=== PATIENT | female | born 1960 | race Caucasian/White ===

== ENCOUNTER 2016-12-23 14:51 | Emergency (ER) | payer OTHER ==
[~2016-12-23] VITALS: Ht 170.2 cm; Wt 49.0 kg
[~2016-12-23 14:51] MED LIST: AMLO10 PO; CLON0.2T PO; LEVO-86 PO; LISI-515 PO; METO25TA3 PO; TRAM50TA PO
[2016-12-23 15:05] VITALS: BP 133/94; PULSE 90; RESP 17; TEMP 98.5; O2SAT 96
--- NOTE | 2016-12-23 15:40 | PD ---
HPI . possible broken left pinky Chief Complaint: Injury Time Seen by Provider: 15:40 Travel History International Travel<30 days: No Contact w/Intl Traveler<30days: No Traveled to known affect area: No History of Present Illness HPI 56-year-old female well known to me while working at [facility] who has hypertension and hypothyroidism here with complaints of a possible left broken pinky finger. Patient says she was doing something at [facility] and somewhat lost her balance and sort of fell and hurt her finger. She admits to pain in the left pinky. It is tender to touch and hurts with slight movement. She denies any other symptoms. She did not hit her head. No LOC or syncope. PFSH Past Medical History Hx Anticoagulant Therapy: No Arthritis: Yes Blood Disorders: No Heart Rhythm Problems: No Cancer: No Cardiac Catheterization: No Cardiovascular Problems: Yes (htn on meds) High Cholesterol: Yes Chemotherapy: No Chest Pain: Yes Congestive Heart Failure: No COPD: Yes Cerebrovascular Accident: Yes Diabetes: No Diminished Hearing: No Endocrine: Yes GERD: Yes Genitourinary: No Headaches: Yes Hepatitis: No Hiatal Hernia: No Heparin Induced Thrombocytopen: No Herniated Disk: Yes (x3 and ruptured disk) Hypertension: Yes Immune Disorder: No Implanted Vascular Access Dvce: No Musculoskeletal: Yes (FX LEFT CALCANEOUS; ARTHRITIS) Neurologic: Yes (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 STROKE 2010 ) Psychiatric: No Respiratory: Yes (copd) Immunizations Current: No Radiation Therapy: Yes Thyroid Disease: Yes (hypothyroid had radiation therapy) Tetanus Vaccination: < 5 Years ?: Not Menopausal: Yes : 2 Para: 2 Tubal Ligation: Yes Past Surgical History Abdominal Surgery: Yes (EXP LAP X 3; CHOLECY 1978; APPY ) AICD: No Appendectomy: Yes Body Medical Devices: HYPOTHYROID Cardiac Surgery: No Section: Yes Cholecystectomy: Yes Coronary Artery Bypass Graft: No Ear Surgery: No Endocrine Surgery: No Eye Surgery: No Genitourinary Surgery: No Gynecologic Surgery: Yes (, HYSTERECTOMY) Hysterectomy: Yes Joint Replacement: No Neurologic Surgery: No Oral Surgery: No Pacemaker: No Thoracic Surgery: No Other Surgery: Yes (exploratory) Family History Family Myocardial Infarction: Yes (MOTHER) Social History Alcohol Use: No Tobacco Use: Yes (1/2 ppd 40 years) Substance Use: No (denies; hx of PAIN PILLS 2009 ) Allergies-Medications (Allergen,Severity, Reaction): Coded Allergies: Morphine (Verified Adverse Reaction, Severe, "CRAMPS STOMACH REAL BAD", 12/23/16) PT STATES SHE CAN TAKE MORPHINE IF HAS FOOD IN STOMACH Reported Meds & Prescriptions Reported Meds & Active Scripts Active Reported Synthroid (Levothyroxine Sodium) 137 Mcg Tab 137 Mcg PO DAILY Norvasc (Amlodipine Besylate) 10 Mg Tab 10 Mg PO DAILY Metoprolol Tartrate 25 Mg Tab 25 Mg PO BID Lisinopril 20 Mg Tab 20 Mg PO BID Clonidine (Clonidine HCl) 0.2 Mg Tab 0.2 Mg PO TID Review of Systems General / Constitutional: No: Fever Eyes: No: Visual changes HENT: No: Headaches Cardiovascular: No: Chest Pain or Discomfort Respiratory: No: Shortness of Breath Gastrointestinal: No: Abdominal Pain Genitourinary: No: Dysuria Musculoskeletal: Positive: Pain (left pinky finger pain and mild swelling ) Skin: No Rash Neurologic: No: Weakness Psychiatric: No: Depression Endocrine: No: Polydipsia Hematologic/Lymphatic: No: Easy Bruising Physical Exam Narrative GENERAL: AAO x 3, no acute distress, Well-nourished, well-developed patient. SKIN: Warm and dry. No visible rashes or bruising. HEAD: Normocephalic and atraumatic. EYES: No scleral icterus. No injection or drainage. ENT: No nasal drainage noted. Mucous membranes pink. Airway patent. NECK: Supple, trachea midline. No JVD. CARDIOVASCULAR: Regular rate and rhythm without murmurs, gallops, or rubs. RESPIRATORY: Breath sounds diminished equally bilaterally. No accessory muscle use. No rhonchi or rales. GASTROINTESTINAL: Abdomen soft, non-tender, nondistended. EXTREMITIES: No cyanosis or edema. Left pinky finger tender to touch, mild edema no ecchymosis.Cap refill cannot be assessed due to acrylic nails. BACK: Nontender without obvious deformity. No CVA tenderness. PSYCH: AAO x 3, normal affect. Data Data Last Documented VS Vital Signs Date Time Temp Pulse Resp B/P Pulse Ox O2 Delivery O2 Flow Rate FiO2 12/23/16 15:05 98.5 90 17 133/94 96 Orders Hand, Complete ([id number]) (3/4/17 15:42) MDM Medical Decision Making Medical Screen Exam Complete: Yes Emergency Medical Condition: Yes Medical Record Reviewed: Yes Differential Diagnosis Left pinky finger fracture, left pinky finger contusion, left pinky finger dislocation Narrative Course 56-year-old female well known to me while working at [facility] who has hypertension and hypothyroidism here with complaints of a possible left broken pinky finger. Patient says she was doing something at [facility] and somewhat lost her balance and sort of fell and hurt her finger. She admits to pain in the left pinky. It is tender to touch and hurts with slight movement. She denies any other symptoms. She did not hit her head. No LOC or syncope. Patient seen and examined. Xray ordered and negative for fracture. Last 24 hours Impressions Hand X-Ray 12/23/16 [id number] Signed Impressions: Service Date/Time: Friday, December 23, 2016 15:48 - CONCLUSION: No acute findings. Cayetano Caballero MD Patient advised to take Ibuprofen and ICE area. She tells nurse she is allergic to ibuprofen and wants Lortab. I advised her that I will not be able to prescribe lortab. Diagnosis Primary Impression: Finger pain, left Patient Instructions: Finger Fracture (ED), General Instructions Additional Instructions: Please return to emergency department if your symptoms return or worsen. Follow up with your primary care provider. Take medications as prescribed. You can ice this area. Use Tylenol as needed for pain. Med/Other Pt SpecificInfo: No Change to Meds Disposition: 01 DISCHARGE HOME Condition: Stable Deedee Sr Dec 23, 2016 15:40
--- NOTE | 2016-12-23 16:11 | RADHPO ---
EXAM DATE/TIME: 12/23/2016 15:48 [facility] COMPARISON: HAND LEFT COMPLETE ([id number]), June 12, 2013, 12:27. INDICATIONS : Fell, has left hand pain MEDICAL HISTORY : None. SURGICAL HISTORY : None. ENCOUNTER: Initial ACUITY: 1 day PAIN SCORE: 8/10 LOCATION: Left hand FINDINGS: There is decreased bone density and mild osteoarthritis of the DIP joints. No fracture or dislocation is seen. CONCLUSION: No acute findings. Cayetano Caballero MD on December 23, 2016 at 16:09 Board Certified Radiologist. This report was verified electronically.
== END 2016-12-23 16:36 | disposition home or self-care (01) ==
LOC: PHEFT 14:51
DX: M79.645 Pain in left finger(s) (principal); I10 Essential (primary) hypertension; E78.00 Pure hypercholesterolemia, unspecified; J44.9 Chronic obstructive pulmonary disease, unspecified; E03.9 Hypothyroidism, unspecified; F17.210 Nicotine dependence, cigarettes, uncomplicated
CPT/HCPCS: 73130; 99283

== ENCOUNTER 2017-02-10 02:38 | Emergency (ER) | payer OTHER ==
[~2017-02-10] VITALS: Ht 170.2 cm; Wt 53.0 kg
[~2017-02-10 02:38] MED LIST changes: -TRAM50TA PO
[2017-02-10 02:46] VITALS: BP 185/106; PULSE 84; RESP 20; TEMP 98.2; O2SAT 99
[2017-02-10 03:01] VITALS: BP 185/106; PULSE 84; RESP 20; TEMP 98.2; O2SAT 99
[2017-02-10] MEDS ORDERED: oxyCODONE/ACETAMINOPHEN 5 MG/325 MG TAB PO ONE (03:30)
[2017-02-10] MEDS ORDERED: ONDANSETRON ODT 4 MG TAB PO ONE (03:30)
[2017-02-10 04:18] VITALS: BP 147/97; PULSE 69; RESP 20; O2SAT 98
[2017-02-10 04:32] LABS: BLOOD, URINE NEG (NEG); GLUCOSE,URINE NEG (NEG); KETONE, URINE NEG (NEG); NITRITE,URINE NEG (NEG)
[2017-02-10 04:38] LABS: URINE COLOR YELLOW (YELLW/STRAW)
[2017-02-10 04:40] LABS: BACTERIA, URINE RARE /hpf; COMMENT (UR) CULT NOT INDICATED; CULTURE IF INDICATED CULT NOT INDICATED; RBC, URINE 0-2 /hpf (0-3); SQUAMOUS EPITHELIAL CELL URINE > 8 /hpf (0-5); WBC, URINE 0-2 /hpf (0-5)
--- NOTE | 2017-02-10 05:04 | PD ---
HPI Chief Complaint: Musculoskeletal Complaint Time Seen by Provider: 03:25 Travel History International Travel<30 days: No Contact w/Intl Traveler<30days: No Traveled to known affect area: No History of Present Illness HPI 56-year-old female presents to the emergency department by private transportation for complaint of back pain with muscle spasm. Patient has history of back pain but typically not this severe. Patient states pain also sometimes refers down into her lower extremity. Patient denies any numbness tingling or weakness of the lower extremities. No bladder or bowel dysfunction. No saddle anesthesia. No recent fall or injury. Patient does admit to history of hypertension and tobacco use. Patient denies any chest pain shortness of breath abdominal pain referred neck jaw back shoulder arm pain. Patient notes that range of motion and ambulation increases pain remaining still provided some relief. PFSH Past Medical History Narrative Medical Arthritis COPD hypertension dyslipidemia hypothyroidism appendectomy cholecystectomy tobacco use nursing notes reviewed Hx Anticoagulant Therapy: No Arthritis: Yes Blood Disorders: No Heart Rhythm Problems: No Cancer: No Cardiac Catheterization: No Cardiovascular Problems: Yes (htn on meds) High Cholesterol: Yes Chemotherapy: No Chest Pain: Yes Congestive Heart Failure: No COPD: Yes Cerebrovascular Accident: Yes Diabetes: No Diminished Hearing: No Endocrine: Yes GERD: Yes Genitourinary: No Headaches: Yes Hepatitis: No Hiatal Hernia: No Heparin Induced Thrombocytopen: No Herniated Disk: Yes (x3 and ruptured disk) Hypertension: Yes Immune Disorder: No Implanted Vascular Access Dvce: No Medical other: No Musculoskeletal: Yes (FX LEFT CALCANEOUS; ARTHRITIS) Neurologic: Yes (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 STROKE 2010 ) Psychiatric: No Respiratory: Yes (copd) Immunizations Current: No Radiation Therapy: Yes Thyroid Disease: Yes (hypothyroid had radiation therapy) Tetanus Vaccination: > 5 Years Influenza Vaccination: Yes ?: Not Menopausal: Yes : 2 Para: 2 Tubal Ligation: Yes Past Surgical History Abdominal Surgery: Yes (EXP LAP X 3; CHOLECY 1978; APPY ) AICD: No Appendectomy: Yes Body Medical Devices: HYPOTHYROID Cardiac Surgery: No Section: Yes Cholecystectomy: Yes Coronary Artery Bypass Graft: No Ear Surgery: No Endocrine Surgery: No Eye Surgery: No Genitourinary Surgery: No Gynecologic Surgery: Yes (, HYSTERECTOMY) Hysterectomy: Yes Joint Replacement: No Neurologic Surgery: No Oral Surgery: No Pacemaker: No Thoracic Surgery: No Other Surgery: Yes (exploratory) Family History Family Myocardial Infarction: Yes (MOTHER) Social History Alcohol Use: No Tobacco Use: Yes (1/2 ppd 40 years) Substance Use: No (denies; hx of PAIN PILLS 2009 ) Allergies-Medications (Allergen,Severity, Reaction): Coded Allergies: Morphine (Verified Adverse Reaction, Severe, "CRAMPS STOMACH REAL BAD", ) PT STATES SHE CAN TAKE MORPHINE IF HAS FOOD IN STOMACH Reported Meds & Prescriptions Reported Meds & Active Scripts Active Robaxin (Methocarbamol) 750 Mg Tab 750 Mg PO Q6HR Zofran Odt (Ondansetron Odt) 4 Mg Tab 4 Mg SL Q6HR PRN Ultram (Tramadol HCl) 50 Mg Tab 50 Mg PO Q6H PRN Reported Synthroid (Levothyroxine Sodium) 137 Mcg Tab 137 Mcg PO DAILY Norvasc (Amlodipine Besylate) 10 Mg Tab 10 Mg PO DAILY Metoprolol Tartrate 25 Mg Tab 25 Mg PO BID Lisinopril 20 Mg Tab 20 Mg PO BID Clonidine (Clonidine HCl) 0.2 Mg Tab 0.2 Mg PO TID Review of Systems Except as stated in HPI: all other systems reviewed are Neg General / Constitutional: No: Fever, Chills Eyes: No: Visual changes HENT: No: Headaches, Neck Stiffness, Neck Pain Cardiovascular: No: Chest Pain or Discomfort Respiratory: No: Shortness of Breath Gastrointestinal: No: Nausea, Vomiting, Abdominal Pain Genitourinary: No: Flank Pain Musculoskeletal: Positive: Myalgias, Arthralgias, Pain Skin: No Rash (upper and lower back) Neurologic: No: Weakness, Dizziness, Syncope, Focal Abnormalities, Coordination Problem, Ataxia, Headache, Change in Mentation, Slurred Speech, Paresthesia, Incontinence, Seizures, Sensory Disturbance Psychiatric: Positive: Anxiety Hematologic/Lymphatic: No: Lymph Node Enlargement Physical Exam Narrative GENERAL: Well-developed well-nourished female in no acute distress no respiratory distress SKIN: Warm and dry. HEAD: Atraumatic. Normocephalic. EYES: Pupils equal and round. No scleral icterus. No injection or drainage. ENT: No nasal bleeding or discharge. Mucous membranes pink and moist. NECK: Trachea midline. No JVD. CARDIOVASCULAR: Regular rate and rhythm. RESPIRATORY: No accessory muscle use. Clear to auscultation. Breath sounds equal bilaterally. GASTROINTESTINAL: Abdomen soft, non-tender, nondistended. Hepatic and splenic margins not palpable. MUSCULOSKELETAL: Extremities without clubbing, cyanosis, or edema. No obvious deformities. Tenderness to palpation along the thoracic and lumbar spine with paravertebral tenderness or spasm. Straight leg raising bilaterally. DTRs 2+ and equal without clonus. Radial and dorsalis pedis pulses 2+ to palpation. NEUROLOGICAL: Awake and alert. No obvious cranial nerve deficits. Motor grossly within normal limits. Five out of 5 muscle strength in the arms and legs. Normal speech. PSYCHIATRIC: Appropriate mood and affect; insight and judgment normal. Data Data Last Documented VS Vital Signs Date Time Temp Pulse Resp B/P Pulse Ox O2 Delivery O2 Flow Rate FiO2 02/10/17 05:23 74 18 98 02/10/17 04:18 147/97 Room Air 02/10/17 03:01 98.2 Orders Ondansetron Odt (Zofran Odt) (02/10/17 03:30) Oxycodone-Acetamin 5-325 Mg (Percocet (02/10/17 03:30) Urinalysis - C+S If Indicated (02/10/17 03:43) Labs Laboratory Tests Test 02/10/17 04:20 Urine Color YELLOW Urine Turbidity CLEAR Urine pH 6.0 Urine Specific Fults 1.012 Urine Protein TRACE mg/dL Urine Glucose (UA) NEG mg/dL Urine Ketones NEG mg/dL Urine Occult Blood NEG Urine Nitrite NEG Urine Bilirubin NEG Urine Leukocyte Esterase NEG Urine RBC 0-2 /hpf Urine WBC 0-2 /hpf Urine Squamous Epithelial > 8 /hpf Cells Urine Bacteria RARE /hpf Microscopic Urinalysis Comment CULT NOT INDICATED MDM Medical Decision Making Medical Screen Exam Complete: Yes Emergency Medical Condition: Yes Medical Record Reviewed: Yes Interpretation(s) UA: greater than 8 sq cells; cx not indicated Differential Diagnosis Chronic pain syndrome, DDD, DJD, HNP, sciatica; patient at this time does not appear to be consistent with aortic dissection or aneurysm or accelerated hypertension Narrative Course Patient ambulatory about the room complaining of back pain with range of motion administer a one-time dose of Zofran 4 mg sublingual as well as Percocet 5/325 by mouth Urinalysis noted for greater than 8 squamous epithelial cells At 5 AM patient clinically improved and stable for outpatient management pain has markedly improved after one-time dose of pain medication Diagnosis Primary Impression: Back pain of thoracolumbar region Referrals: Primary Care Physician 2 days Patient Instructions: General Instructions Additional Instructions: Apply moist heat to affected areas Take medication as prescribed as needed for pain; tramadol Take medicine as prescribed as needed for muscle spasm; Robaxin Take medication as prescribed as needed for nausea or vomiting; Zofran Follow-up with primary care provider Stop smoking cigarettes Return to the emergency department for a concerns or change in condition Med/Other Pt SpecificInfo: Prescription(s) given Scripts Methocarbamol (Robaxin)750 Mg Bog232 Mg PO Q6HR #10 TAB Ref 0 Prov:Lucia Brown MD 02/10/17 Ondansetron Odt (Zofran Odt)4 Mg Tab4 Mg SL Q6HR PRN (Nausea/Vomiting) #10 TAB Ref 0 Prov:Lucia Brown MD 02/10/17 Tramadol (Ultram)50 Mg Tab50 Mg PO Q6H PRN (PAIN) #15 TAB Ref 0 Prov:Lucia Brown MD 02/10/17 Disposition: 01 DISCHARGE HOME Condition: Stable Lucia Brown MD Feb 10, 2017 05:04
[2017-02-10] MEDS ORDERED: ZOFR4TAB3 SL (05:05)
[2017-02-10] MEDS ORDERED: ULTR50TA5 PO (05:05)
[2017-02-10] MEDS ORDERED: ROBA750T PO (05:05)
== END 2017-02-10 05:23 | disposition home or self-care (01) ==
LOC: PHED 02:38
DX: M54.6 Pain in thoracic spine (principal); E03.9 Hypothyroidism, unspecified; F17.210 Nicotine dependence, cigarettes, uncomplicated
CPT/HCPCS: 81001; 99283

== ENCOUNTER 2017-04-14 15:03 | Emergency (ER) | payer OTHER ==
[~2017-04-14] VITALS: Ht 170.2 cm; Wt 48.4 kg
[~2017-04-14 15:03] MED LIST changes: +ROBA750T PO; +ULTR50TA5 PO; +ZOFR4TAB3 SL
[2017-04-14 15:05] VITALS: BP 178/112; PULSE 87; RESP 18; TEMP 98.4; O2SAT 99
--- NOTE | 2017-04-14 16:02 | PD ---
HPI Chief Complaint: Fall Time Seen by Provider: 15:50 Travel History International Travel<30 days: No Contact w/Intl Traveler<30days: No Traveled to known affect area: No History of Present Illness HPI 57-year-old female presents to the emergency room for evaluation of right-sided posterior pelvis pain after falling down 6 stairs last night. Patient slipped on marbles stairs and fell backwards, striking her hip and several stairs. She denies hitting her head or loss of consciousness. She denies any other injuries. States she has been applying heat and ice to the affected area without relief in symptoms. She has also been taking Tylenol. Patient cannot take ibuprofen because she has end-stage kidney disease. She has been ambulatory since onset of symptoms. Denies loss of power back control, saddle anesthesia, or lower extremity paresthesias. PFSH Past Medical History Hx Anticoagulant Therapy: No Arthritis: Yes Blood Disorders: No Heart Rhythm Problems: No Cancer: No Cardiac Catheterization: No Cardiovascular Problems: Yes (HTN, due for meds now ) High Cholesterol: Yes Chemotherapy: No Chest Pain: Yes Congestive Heart Failure: No COPD: Yes Cerebrovascular Accident: Yes Diabetes: No Diminished Hearing: No Endocrine: Yes GERD: Yes Genitourinary: No Headaches: Yes Hepatitis: No Hiatal Hernia: No Heparin Induced Thrombocytopen: No Herniated Disk: Yes (x3 and ruptured disk) Hypertension: Yes Immune Disorder: No Implanted Vascular Access Dvce: No Musculoskeletal: Yes (FX LEFT CALCANEOUS; ARTHRITIS) Neurologic: Yes (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 STROKE 2010 ) Psychiatric: No Respiratory: Yes (COPD) Immunizations Current: Yes Radiation Therapy: Yes Thyroid Disease: Yes (hypothyroid had radiation therapy) Tetanus Vaccination: > 5 Years Influenza Vaccination: Yes ?: Not Menopausal: Yes : 2 Para: 2 Tubal Ligation: Yes Past Surgical History Abdominal Surgery: Yes (EXP LAP X 3; CHOLECY 1978; APPY ) AICD: No Appendectomy: Yes Body Medical Devices: HYPOTHYROID Cardiac Surgery: No Section: Yes Cholecystectomy: Yes Coronary Artery Bypass Graft: No Ear Surgery: No Endocrine Surgery: No Eye Surgery: No Genitourinary Surgery: No Gynecologic Surgery: Yes (, HYSTERECTOMY) Hysterectomy: Yes Joint Replacement: No Neurologic Surgery: No Oral Surgery: No Pacemaker: No Thoracic Surgery: No Other Surgery: Yes (exploratory) Family History Family Myocardial Infarction: Yes (MOTHER) Social History Alcohol Use: No Tobacco Use: Yes (1/2 ppd 40 years) Substance Use: No (denies; hx of PAIN PILLS 2009 ) Allergies-Medications (Allergen,Severity, Reaction): Coded Allergies: Morphine (Verified Adverse Reaction, Severe, Stomach cramping, 04/14/17) Reported Meds & Prescriptions Reported Meds & Active Scripts Active Reported Synthroid (Levothyroxine Sodium) 137 Mcg Tab 137 Mcg PO DAILY Norvasc (Amlodipine Besylate) 10 Mg Tab 10 Mg PO DAILY Metoprolol Tartrate 25 Mg Tab 50 Mg PO BID Lisinopril 20 Mg Tab 20 Mg PO BID Clonidine (Clonidine HCl) 0.2 Mg Tab 0.2 Mg PO TID Review of Systems Except as stated in HPI: all other systems reviewed are Neg Physical Exam Narrative GENERAL: Well-nourished, well-developed female in no acute distress, appearing older than her stated age. Afebrile. Ambulatory. Patient is lying on her left side with her knees curled up. SKIN: Focused skin assessment warm/dry. No erythema or ecchymosis. HEAD: Normocephalic. EYES: No scleral icterus. No injection or drainage. NECK: Supple, trachea midline. No JVD or lymphadenopathy. CARDIOVASCULAR: Regular rate and rhythm without murmurs, gallops, or rubs. RESPIRATORY: Breath sounds equal bilaterally. No accessory muscle use. MUSCULOSKELETAL: No cyanosis, or edema. Extreme tenderness to palpation of the right posterior pelvis at the iliac crest. No obvious deformity. 2+ dorsalis pedis pulse. Full range of motion of the right hip. BACK: Nontender without obvious deformity. No CVA tenderness. No midline tenderness. Data Data Last Documented VS Vital Signs Date Time Temp Pulse Resp B/P Pulse Ox O2 Delivery O2 Flow Rate FiO2 04/14/17 15:05 98.4 87 18 178/112 99 Orders Pelvis, Ap Only (Routine) (04/14/17 ) MDM Medical Decision Making Medical Screen Exam Complete: Yes Emergency Medical Condition: Yes Medical Record Reviewed: Yes Differential Diagnosis Contusion, back pain, fracture, abrasion, strain, sprain Narrative Course 57-year-old female presents to the emergency room for evaluation of right posterior pelvis pain after falling down 6 stairs yesterday. Patient denies any other injuries. Patient has been ambulatory since onset of symptoms. Denies focal neurological deficits. Right lower extremity is neurovascularly intact. There is no obvious deformity, contusion, or edema of the right hip. Patient is lying on her left side with her legs curled up in bed. X-ray of the pelvis is negative. Patient was told to take Tylenol for pain and follow up with her primary care physician or return for worsening symptoms. She understands and agrees to plan. Diagnosis Primary Impression: Contusion of right hip Qualified Code: S70.01XA - Contusion of right hip, initial encounter Referrals: Primary Care Physician Patient Instructions: Contusion in Adults (ED), General Instructions Additional Instructions: Rest and drink plenty of fluids. Take Tylenol as directed, as needed for pain. Apply ice to the affected area for 20 minutes at a time, as needed for pain and swelling. Follow-up with a primary care physician. Return to the emergency room for worsening symptoms. Disposition: 01 DISCHARGE HOME Condition: Stable Tiarra Reynaga Apr 14, 2017 16:02
--- NOTE | 2017-04-14 16:45 | RADRPT ---
EXAM DATE/TIME: 04/14/2017 16:30 [facility] COMPARISON: PELVIS AP ONLY, February 19, 2014, 12:34. INDICATIONS : Fall, has pelvic pain MEDICAL HISTORY : None. SURGICAL HISTORY : None. ENCOUNTER: Initial ACUITY: 1 day PAIN SCORE: 10/10 LOCATION: Bilateral pelvis FINDINGS: A single frontal view of the pelvis demonstrates no evidence of fracture. The bony pelvic ring is in tact. The soft tissues are intact. Phleboliths are seen in the pelvis. The bones appear osteopenic . CONCLUSION: No acute disease. Everette Salomon MD on April 14, 2017 at 16:42 Board Certified Radiologist. This report was verified electronically.
== END 2017-04-14 17:10 | disposition home or self-care (01) ==
LOC: PHEFT 15:03
DX: S70.01XA Contusion of right hip, initial encounter (principal); M19.90 Unspecified osteoarthritis, unspecified site; J44.9 Chronic obstructive pulmonary disease, unspecified; E03.9 Hypothyroidism, unspecified; I10 Essential (primary) hypertension; W10.9XXA Fall (on) (from) unspecified stairs and steps, initial encounter; E78.00 Pure hypercholesterolemia, unspecified; Y93.9 Activity, unspecified; Y92.9 Unspecified place or not applicable; Y99.9 Unspecified external cause status
CPT/HCPCS: 72170; 99283

== ENCOUNTER 2017-06-23 11:45 | Emergency (ER) | payer OTHER ==
[~2017-06-23] VITALS: Ht 170.2 cm; Wt 55.0 kg
[~2017-06-23 11:45] MED LIST changes: -ROBA750T PO; -ULTR50TA5 PO; -ZOFR4TAB3 SL
[2017-06-23] MEDS ORDERED: SODIUM CHLORIDE 0.9% FLUSH 10 ML FLUSH IVF PRN (12:00)
[2017-06-23] MEDS ORDERED: RANI150T PO (12:04)
[2017-06-23] MEDS ORDERED: HYDR25TA5 PO (12:04)
[2017-06-23] MEDS ORDERED: HYDR-3799 PO (12:04)
--- NOTE | 2017-06-23 12:14 | PD ---
HPI Chief Complaint: Respiratory Distress Time Seen by Provider: 11:53 Travel History International Travel<30 days: No Contact w/Intl Traveler<30days: No Traveled to known affect area: No History of Present Illness HPI Patient comes to the emergency department by EMS complaining of left-sided chest tightness that began while she was watching TV. Patient states this began reports she called EMS. Patient denies anything making it worse. Patient received nitroglycerin times one dose without improvement and reportedly made her symptoms worse including her headache. Patient did receive breathing treatment by EMS that helped a little but continues to have the left- sided chest tightness. Patient reports the pain radiates to her back and her left upper extremity. Patient reports she's had a stress test but has been years ago. Patient denies any known cardiac history aside from hypertension. Patient reports she's been taking all of her medication as prescribed. Patient states she is unable take aspirin secondary to her stomach and liver. Patient has a history of CVA, malignant hypertension, COPD, opiate abuse, medical noncompliance, tobacco abuse, chronic back pain, hyperlipidemia, hypothyroidism , chronic kidney disease, gastroenteritis, and hypothyroidism per medical records. PFSH Past Medical History Hx Anticoagulant Therapy: No Arthritis: Yes Blood Disorders: No Heart Rhythm Problems: No Cancer: No Cardiac Catheterization: No Cardiovascular Problems: Yes (HTN, due for meds now ) High Cholesterol: Yes Chemotherapy: No Chest Pain: Yes Congestive Heart Failure: No COPD: Yes Cerebrovascular Accident: Yes (TIA) Diabetes: No Diminished Hearing: No Endocrine: Yes GERD: Yes Genitourinary: No Headaches: Yes Hepatitis: No Hiatal Hernia: No Heparin Induced Thrombocytopen: No Herniated Disk: Yes (x3 and ruptured disk) Hypertension: Yes Immune Disorder: No Implanted Vascular Access Dvce: No Musculoskeletal: Yes (FX LEFT CALCANEOUS; ARTHRITIS) Neurologic: Yes (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 STROKE 2010 ) Psychiatric: No Respiratory: Yes (COPD) Immunizations Current: Yes Radiation Therapy: Yes Renal Failure: Yes (STAGE 3 KIDNEY FAILURE) Thyroid Disease: Yes (hypothyroid had radiation therapy) Tetanus Vaccination: > 5 Years Influenza Vaccination: Yes Menopausal: Yes : 2 Para: 2 Miscarriage: 0 : 0 Tubal Ligation: Yes Past Surgical History Abdominal Surgery: Yes (EXP LAP X 3; CHOLECY 1978; APPY ) AICD: No Appendectomy: Yes Body Medical Devices: HYPOTHYROID Cardiac Surgery: No Section: Yes Cholecystectomy: Yes Coronary Artery Bypass Graft: No Ear Surgery: No Endocrine Surgery: No Eye Surgery: No Genitourinary Surgery: No Gynecologic Surgery: Yes (, HYSTERECTOMY) Hysterectomy: Yes Joint Replacement: No Neurologic Surgery: No Oral Surgery: No Pacemaker: No Thoracic Surgery: No Other Surgery: Yes (exploratory) Family History Family Myocardial Infarction: Yes (MOTHER) Social History Alcohol Use: No Tobacco Use: Yes (10/25 PPD) Substance Use: No (denies; hx of PAIN PILLS 2009 ) Allergies-Medications (Allergen,Severity, Reaction): Coded Allergies: NSAIDS (Non-Steroidal Anti-Inflamma (Verified Adverse Reaction, Severe, 06/23/17) KIDNEY FAILURE aspirin (Verified Adverse Reaction, Severe, 06/23/17) ULCERS morphine (Unverified Adverse Reaction, Severe, Stomach cramping, 06/23/17) Uncoded Allergies: STERIODS (Adverse Reaction, Severe, 06/23/17) KIDNEY FAILURE Reported Meds & Prescriptions Reported Meds & Active Scripts Active Reported Hydralazine HCl 25 Mg Tablet 25 Mg PO TID Hydrochlorothiazide 25 Mg Tab 25 Mg PO DAILY Ranitidine (Ranitidine HCl) 150 Mg Tab 150 Mg PO BID Synthroid (Levothyroxine Sodium) 137 Mcg Tab 137 Mcg PO DAILY Norvasc (Amlodipine Besylate) 10 Mg Tab 10 Mg PO DAILY Metoprolol Tartrate 25 Mg Tab 50 Mg PO BID Lisinopril 20 Mg Tab 20 Mg PO BID Clonidine (Clonidine HCl) 0.2 Mg Tab 0.2 Mg PO TID Review of Systems Except as stated in HPI: all other systems reviewed are Neg Physical Exam Narrative GENERAL: Well-developed, well nourished, in no acute distress, and non-ill appearing. SKIN: Focused skin assessment warm and dry. HEAD: Atraumatic. Normocephalic. EYES: Pupils equal and round. EOMI. No scleral icterus. No injection or drainage. ENT: No nasal bleeding or discharge. Mucous membranes pink and moist. NECK: Trachea midline. No JVD. Supple. No nuclear rigidity. CARDIOVASCULAR: Regular rate and rhythm. No murmur appreciated. RESPIRATORY: No accessory muscle use. No respiratory distress. Decreased breath sounds throughout. Breath sounds equal bilaterally. Speaking in full sentences without difficulty. GASTROINTESTINAL: Abdomen soft, non-tender, nondistended, and no guarding. Hepatic and splenic margins not palpable. No pulsatile mass. MUSCULOSKELETAL: No obvious deformities. No clubbing. No cyanosis. No edema. Full range of motion. NEUROLOGICAL: Awake and alert. No obvious cranial nerve deficits. Motor grossly within normal limits. Normal speech. PSYCHIATRIC: Appropriate mood and affect; insight and judgment normal. Data Data Last Documented VS Vital Signs Date Time Temp Pulse Resp B/P (MAP) Pulse Ox O2 Delivery O2 Flow Rate FiO2 06/23/17 14:31 64 20 148/85 (106) 94 Room Air 06/23/17 12:00 2.00 Orders Orders Electrocardiogram (06/23/17 ) Basic Metabolic Panel (Bmp) (06/23/17 11:58) Ckmb (Isoenzyme) Profile (06/23/17 11:58) Complete Blood Count With Diff (06/23/17 11:58) Magnesium (Mg) (06/23/17 11:58) Prothrombin Time / Inr (Pt) (06/23/17 11:58) Act Partial Throm Time (Ptt) (06/23/17 11:58) Troponin I (06/23/17 11:58) Chest, Single Ap (06/23/17 11:58) Ecg Monitoring (06/23/17 11:58) Bilateral Bp Monitoring (06/23/17 11:58) Iv Access Insert/Monitor (06/23/17 11:58) Oximetry (06/23/17 11:58) Oxygen Administration (06/23/17 11:58) Sodium Chloride 0.9% Flush (Ns Flush) (06/23/17 12:00) Acetaminophen (Tylenol) (06/23/17 12:15) Albuterol-Ipratropium Neb (Duoneb Neb) (06/23/17 14:15) Labs Laboratory Tests Test 06/23/17 12:05 White Blood Count 8.0 TH/MM3 Red Blood Count 3.56 MIL/MM3 Hemoglobin 10.8 GM/DL Hematocrit 33.1 % Mean Corpuscular Volume 93.1 FL Mean Corpuscular Hemoglobin 30.3 PG Mean Corpuscular Hemoglobin Concent 32.6 % Red Cell Distribution Width 16.8 % Platelet Count 287 TH/MM3 Mean Platelet Volume 6.7 FL Neutrophils (%) (Auto) 63.6 % Lymphocytes (%) (Auto) 24.6 % Monocytes (%) (Auto) 7.7 % Eosinophils (%) (Auto) 3.5 % Basophils (%) (Auto) 0.6 % Neutrophils # (Auto) 5.1 TH/MM3 Lymphocytes # (Auto) 2.0 TH/MM3 Monocytes # (Auto) 0.6 TH/MM3 Eosinophils # (Auto) 0.3 TH/MM3 Basophils # (Auto) 0.0 TH/MM3 CBC Comment DIFF FINAL Differential Comment Prothrombin Time 10.0 SEC Prothromb Time International Ratio 0.9 RATIO Activated Partial Thromboplast Time 27.7 SEC Blood Urea Nitrogen 36 MG/DL Creatinine 1.42 MG/DL Random Glucose 93 MG/DL Calcium Level 8.6 MG/DL Magnesium Level 2.2 MG/DL Sodium Level 136 MEQ/L Potassium Level 4.3 MEQ/L Chloride Level 103 MEQ/L Carbon Dioxide Level 22.9 MEQ/L Anion Gap 10 MEQ/L Estimat Glomerular Filtration Rate 38 ML/MIN Total Creatine Kinase 42 U/L Troponin I LESS THAN 0.02 NG/ML MDM Medical Decision Making Medical Screen Exam Complete: Yes Emergency Medical Condition: Yes Interpretation(s) EKG reviewed by Dr. Tam shows sinus rhythm with ventricular rate of 70. No STEMI. Chest x-ray read by the radiologist shows: No acute disease. Differential Diagnosis Acute coronary syndrome, pneumonia, COPD exacerbation, electrolyte abnormality, other Narrative Course Patient was seen and examined. Initial laboratory and radiological studies were ordered. IV was established and patient was placed and continues cardiac monitoring. Patient's medical records reviewed show she had a stress test June 01, 2015 that was negative with a nuclear perfusion scan that found patient to be low risk. 1400 patient was reassessed states she feels like she needs a breathing treatment again. Patient reports no change in her chest pain. Is requesting something different for her headache. Patient is requesting Fioricet. I discussed with patient that her sinus aspirin in it starts out as she can't take it secondary to her stomach and liver. I explained to the patient we would repeat EKG as well as blood work to have better reassurance this is not coming from her heart. Patient states just forget about the Fioricet and that she is going to leave if we give her the Fioricet or something stronger than Tylenol for her headache. The risks of leaving against medical advice without further evaluation treatment were discussed with the patient. These risks include cardiac dysfunction, cardiac dysrhythmia, possible heart attack, possible stroke or . The patient indicated understanding of these risks and appeared to have the capacity to make this decision. Pt ambulated without difficulty out of ED AGAINST MEDICAL ADVICE. Diagnosis Primary Impression: Left against medical advice Disposition: 07 AGAINST MEDICAL ADVICE Condition: Stable Monster Smith Jun 23, 2017 12:13
[2017-06-23] MEDS ORDERED: ACETAMINOPHEN 500 MG CPLT PO ONE (12:15)
[2017-06-23 12:48] LABS: AUTOMATED NEUTROPHIL # 5.1 TH/MM3 (1.8-7.7); BASOPHIL % 0.6 % (0.0-2.0); EOSINOPHIL # 0.3 TH/MM3 (0-0.4); EOSINOPHIL % 3.5 % (0.0-4.0); HEMATOCRIT 33.1 % (35.0-46.0); HEMO FLAGS DIFF FINAL; LYMPH % 24.6 % (9.0-44.0); MEAN CELL VOLUME 93.1 FL (80.0-100.0); MEAN CORPUSCULAR HEMOGLOBIN 30.3 PG (27.0-34.0); MEAN CORPUSCULAR HGB CONC 32.6 % (32.0-36.0); MONO % 7.7 % (0.0-8.0); NEUT % 63.6 % (16.0-70.0); PLATELET COUNT 287 TH/MM3 (150-450); RED BLOOD COUNT 3.56 MIL/MM3 (4.00-5.30); RED CELL DISTRIBUTION WIDTH 16.8 % (11.6-17.2)
[2017-06-23 13:00] LABS: APTT (PATIENT) 27.7 SEC (24.3-30.1); INTERNATIONAL NORMALIZED RATIO 0.9 RATIO
[2017-06-23 13:08] LABS: ANION GAP 10 MEQ/L (5-15); BICARBONATE 22.9 MEQ/L (21.0-32.0); BLOOD UREA NITROGEN 36 MG/DL (7-18); CHLORIDE 103 MEQ/L (98-107); GLOMERULAR FILTRATION RATE 38 ML/MIN (>89); MAGNESIUM 2.2 MG/DL (1.5-2.5); POTASSIUM 4.3 MEQ/L (3.5-5.1); SODIUM (NA) 136 MEQ/L (136-145)
[2017-06-23 13:20] LABS: CREATINE KINASE 42 U/L (26-192)
--- NOTE | 2017-06-23 13:47 | RADRPT ---
EXAM DATE/TIME: 06/23/2017 13:31 [facility] COMPARISON: CHEST SINGLE AP, June 17, 2016, 20:00. INDICATIONS : Chest pain. MEDICAL HISTORY : Chronic obstructive pulmonary disease. SURGICAL HISTORY : None. ENCOUNTER: Initial ACUITY: 1 day PAIN SCORE: 1/10 LOCATION: Bilateral chest FINDINGS: A single view of the chest demonstrates the lungs to be symmetrically aerated without evidence of mas s, infiltrate or effusion. The cardiomediastinal contours are unremarkable. Osseous structures are intact. CONCLUSION: No acute disease. Moe Carl MD FACR on June 23, 2017 at 13:46 Board Certified Radiologist. This report was verified electronically.
[2017-06-23] MEDS ORDERED: RESP: ALBUTEROL 2.5 MG/IPRATROPIUM 0.5 MG NEB (SCH) INH ONE (14:15)
[2017-06-23 14:31] VITALS: BP 148/85; PULSE 64; RESP 20; O2SAT 94
--- NOTE | 2017-06-23 17:22 | EKG ---
Date Performed: 06/23/2017 Time Performed: 11:57:34 PTAGE: 57 years EKG: Sinus rhythm MARKED RIGHT AXIS DEVIATION MODERATE VOLTAGE CRITERIA FOR LVH, CONSIDER NORMAL VARIANT MINIMAL ST DE PRESSION ABNORMAL ECG PREVIOUS TRACING : 06/17/2016 19.10 DOCTOR: Cooper Coronado Interpretating Date/Time 06/23/2017 17:21:09
== END 2017-06-23 14:45 | disposition left against medical advice (07) ==
LOC: NEPE 11:45
DX: R07.89 Other chest pain (principal); I12.9 Hypertensive chronic kidney disease with stage 1 through stage 4 chronic kidney disease, or unspecified chronic kidney disease; F17.200 Nicotine dependence, unspecified, uncomplicated; N18.3 Chronic kidney disease, stage 3 (moderate); E03.9 Hypothyroidism, unspecified
CPT/HCPCS: 71010; 80048; 82550; 83735; 84484; 85025; 85610; 85730; 93005; 99285

== ENCOUNTER 2018-02-09 09:26 | Emergency (ER) | payer OTHER ==
[~2018-02-09] VITALS: Ht 170.2 cm; Wt 58.0 kg
[~2018-02-09 09:26] MED LIST changes: +HYDR-3799 PO; +HYDR25TA5 PO; +RANI150T PO
[2018-02-09 09:31] VITALS: BP 131/74; PULSE 76; RESP 16; TEMP 97.6; O2SAT 94
[2018-02-09] MEDS ORDERED: SACU1TAB PO (10:02)
[2018-02-09] MEDS ORDERED: ALBUAER3 INH (10:02)
[2018-02-09 10:16] LABS: BILIRUBIN, URINE NEG (NEG); BLOOD, URINE NEG (NEG); GLUCOSE,URINE NEG (NEG); KETONE, URINE NEG (NEG); NITRITE,URINE NEG (NEG); PH, URINE 5.5 (5.0-8.5); URINE COLOR YELLOW (YELLW/STRAW); URINE LEUKOCYTE ESTERASE NEG (NEG)
[2018-02-09 10:24] LABS: AMORPHOUS SEDIMENT, URINE FEW; BACTERIA, URINE MOD /hpf; SQUAMOUS EPITHELIAL CELL URINE 0-5 /hpf (0-5); WBC, URINE 0-2 /hpf (0-5)
[2018-02-09] MEDS ORDERED: PRED10PA PO (10:55)
[2018-02-09] MEDS ORDERED: CIPR-9 PO (10:55)
[2018-02-09] MEDS ORDERED: AZIT250T3 PO (10:55)
[2018-02-09] MEDS ORDERED: TRAM50 PO (10:55)
--- NOTE | 2018-02-09 10:56 | PD ---
HPI Chief Complaint: Complaint Time Seen by Provider: 10:43 Travel History International Travel<30 days: No Contact w/Intl Traveler<30days: No Traveled to known affect area: No History of Present Illness HPI Patient presents with complaints of chronic back pain. Denies any misstep or fall. Aggravated with movement. Additional complaints of urinary pressure and urgency without hematuria. Denies nausea vomiting diarrhea or fever. Symptom onset 2-3 days. History of COPD with mild increase in shortness of breath for 2 -3 days. Continues to smoke 2 cigarettes per day symptom onset 2-3 days. Denies nausea vomiting diarrhea or fever. Denies new cough. PFSH Past Medical History Hx Anticoagulant Therapy: No Arthritis: Yes Blood Disorders: No Heart Rhythm Problems: No Cancer: No Cardiac Catheterization: No Cardiovascular Problems: Yes (HTN, due for meds now ) High Cholesterol: Yes Chemotherapy: No Chest Pain: Yes Congestive Heart Failure: No COPD: Yes Cerebrovascular Accident: Yes (TIA) Diabetes: No Diminished Hearing: No Endocrine: Yes GERD: Yes Genitourinary: No Headaches: Yes Hepatitis: No Hiatal Hernia: No Heparin Induced Thrombocytopen: No Herniated Disk: Yes (x3 and ruptured disk) Hypertension: Yes Immune Disorder: No Implanted Vascular Access Dvce: No Musculoskeletal: Yes (FX LEFT CALCANEOUS; ARTHRITIS) Neurologic: Yes (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 STROKE 2010 ) Psychiatric: No Respiratory: Yes (COPD) Immunizations Current: Yes Radiation Therapy: Yes Renal Failure: Yes (STAGE 3 KIDNEY FAILURE) Thyroid Disease: Yes (hypothyroid had radiation therapy) Influenza Vaccination: No Menopausal: Yes : 2 Para: 2 Miscarriage: 0 : 0 Tubal Ligation: Yes Past Surgical History Abdominal Surgery: Yes (EXP LAP X 3; CHOLECY 1978; APPY ) AICD: No Appendectomy: Yes Body Medical Devices: HYPOTHYROID Cardiac Surgery: No Section: Yes Cholecystectomy: Yes Coronary Artery Bypass Graft: No Ear Surgery: No Endocrine Surgery: No Eye Surgery: No Genitourinary Surgery: No Gynecologic Surgery: Yes (, HYSTERECTOMY) Hysterectomy: Yes Joint Replacement: No Neurologic Surgery: No Oral Surgery: No Pacemaker: No Thoracic Surgery: No Other Surgery: Yes (exploratory) Family History Family Myocardial Infarction: Yes (MOTHER) Social History Alcohol Use: No Tobacco Use: Yes (10/25 PPD) Substance Use: No (denies; hx of PAIN PILLS 2009 ) Allergies-Medications (Allergen,Severity, Reaction): Coded Allergies: NSAIDS (Non-Steroidal Anti-Inflamma (Verified Adverse Reaction, Severe, ) KIDNEY FAILURE aspirin (Verified Adverse Reaction, Severe, 02/09/18) ULCERS morphine (Unverified Adverse Reaction, Severe, Stomach cramping, 02/09/18) Uncoded Allergies: STERIODS (Adverse Reaction, Severe, 06/23/17) KIDNEY FAILURE Reported Meds & Prescriptions Reported Meds & Active Scripts Active Reported Proair Hfa 8.5 GM Inh (Albuterol Sulfate) 90 Mcg/Act Aer 2 Puff INH Q4-6H PRN 108 mcg/actuation Entresto (Sacubitril-Valsartan) 24-26 Mg Tab 1 Tab PO DAILY Hydralazine HCl 25 Mg Tablet 50 Mg PO TID Hydrochlorothiazide 25 Mg Tab 25 Mg PO DAILY Ranitidine (Ranitidine HCl) 150 Mg Tab 150 Mg PO BID Synthroid (Levothyroxine Sodium) 137 Mcg Tab 137 Mcg PO DAILY Norvasc (Amlodipine Besylate) 10 Mg Tab 10 Mg PO DAILY Metoprolol Tartrate 25 Mg Tab 75 Mg PO BID Lisinopril 20 Mg Tab 20 Mg PO BID Clonidine (Clonidine HCl) 0.2 Mg Tab 0.2 Mg PO TID Review of Systems Respiratory: Positive: Shortness of Breath Genitourinary: Positive: Dysuria Musculoskeletal: Positive: Pain Physical Exam Narrative GENERAL: Well-nourished, well-developed patient. SKIN: Focused skin assessment warm/dry. HEAD: Normocephalic. EYES: No scleral icterus. No injection or drainage. NECK: Supple, trachea midline. No JVD or lymphadenopathy. CARDIOVASCULAR: Regular rate and rhythm without murmurs, gallops, or rubs. RESPIRATORY: Decreased breath sounds, coarse, and expiratory wheeze. No accessory muscle use. GASTROINTESTINAL: Abdomen soft, non-tender, nondistended. MUSCULOSKELETAL: No cyanosis, or edema. BACK: Nontender without obvious deformity. No CVA tenderness. Examination of lumbar sacral spine reveals no midline tenderness with bilateral paraspinous pain negative straight leg raise Data Data Last Documented VS Vital Signs Date Time Temp Pulse Resp B/P (MAP) Pulse Ox O2 Delivery O2 Flow Rate FiO2 02/09/18 09:31 97.6 76 16 131/74 (93) 94 Orders Orders Urinalysis - C+S If Indicated (02/09/18 09:33) Urine Culture (02/09/18 10:11) Labs Laboratory Tests Test 02/09/18 10:11 Urine Collection Type CLEAN CATCH Urine Color YELLOW Urine Turbidity CLEAR Urine pH 5.5 Urine Specific [place] 1.020 Urine Protein NEG mg/dL Urine Glucose (UA) NEG mg/dL Urine Ketones NEG mg/dL Urine Occult Blood NEG Urine Nitrite NEG Urine Bilirubin NEG Urine Urobilinogen 0.2 MG/DL Urine Leukocyte Esterase NEG Urine WBC 0-2 /hpf Urine Squamous Epithelial Cells 0-5 /hpf Urine Amorphous Sediment FEW Urine Bacteria MOD /hpf Microscopic Urinalysis Comment CULTURE INDICATED Urine Collection Time 1011 MDM Medical Decision Making Medical Screen Exam Complete: Yes Emergency Medical Condition: Yes Differential Diagnosis UTI, COPD exacerbation, chronic lower back pain, tobacco abuse Narrative Course Assessment and plan discussed with patient at bedside. Blood pressure well controlled, O2 sat of 94% Diagnosis Primary Impression: Low back pain Qualified Codes: M54.5 - Low back pain; G89.29 - Other chronic pain Additional Impressions: Dysuria COPD exacerbation Patient Instructions: General Instructions Additional Instructions: Warm heat, gentle stretching strengthening and massage, encourage fluids and a cranberry supplement, encouraged smoking cessation. Follow-up with PCP. Return to emergency room with any onset of new symptoms. Med/Other Pt SpecificInfo: Prescription(s) given Scripts Tramadol (Ultram) 50 Mg Tab 50 MG PO Q4H Y for PAIN, #15 TAB 0 Refills Prov: Mike Eason MD 02/09/18 Azithromycin (Azithromycin) 250 Mg Tab 250 MG PO DIRECTED for Infection, #6 TAB 0 Refills Take 2 tabs (500 mg) on day 1 then 1 tab daily x 4 days. Prov: Mike Eason MD 02/09/18 Prednisone (21) 10 mg tab Dose Pack (Prednisone (21) 10 mg tab Dose Pack) 10 Mg Pack 10 MG PO DIRECTED for Inflammation, #1 DSPK 0 Refills Prov: Mike Eason MD 02/09/18 Ciprofloxacin (Cipro) 500 Mg Tab 500 MG PO BID for Infection, #6 TAB 0 Refills Prov: Mike Eason MD 02/09/18 Disposition: 01 DISCHARGE HOME Condition: Good Mike Eason MD Feb 09, 2018 10:56
[2018-02-09 11:08] VITALS: BP 169/90
== END 2018-02-09 11:11 | disposition home or self-care (01) ==
LOC: PHED 09:26
DX: M54.5 Low back pain (principal); G89.29 Other chronic pain; R30.0 Dysuria; J44.1 Chronic obstructive pulmonary disease with (acute) exacerbation; E78.00 Pure hypercholesterolemia, unspecified; F17.210 Nicotine dependence, cigarettes, uncomplicated; I12.9 Hypertensive chronic kidney disease with stage 1 through stage 4 chronic kidney disease, or unspecified chronic kidney disease; N18.3 Chronic kidney disease, stage 3 (moderate); E03.9 Hypothyroidism, unspecified
CPT/HCPCS: 81001; 87086; 99283